=== PATIENT | male | born 1960 | race African-American/Black ===

== ENCOUNTER 2024-09-11 22:27 | Emergency (ER) | payer MEDICARE, MEDICAID ==
[~2024-09-11] VITALS: Ht 180.3 cm; Wt 81.0 kg
[2024-09-11 22:43] VITALS: O2SAT 96
[2024-09-12] MEDS ORDERED: ACET-2708 MT (00:43)
[2024-09-12 04:00] VITALS: BP 118/66; PULSE 62; RESP 20; TEMP 36.61404; O2SAT 98
== END 2024-09-12 04:09 | disposition home or self-care (01) ==
LOC: ER 22:27
DX: M79.604 Pain in right leg (principal); M79.605 Pain in left leg; E11.9 Type 2 diabetes mellitus without complications; I10 Essential (primary) hypertension
CPT/HCPCS: 73560; 99284